=== PATIENT | female | born 1975 | race African-American/Black ===

== ENCOUNTER 2018-04-22 20:55 | Emergency (ER) | payer OTHER ==
[2018-04-22] MEDS ORDERED: LIDOCAINE 1% INJ-PF (10 MG/ML) 30 ML SDV INJ ONE (22:17)
--- NOTE | 2018-04-22 22:32 | ER Document Report ---
ED Oral Problem - General Chief Complaint: Toothache Stated Complaint: TOOTH PAIN Time Seen by Provider: 04/22/18 21:58 Mode of Arrival: Ambulatory Information source: Patient Notes: 42-year-old female presents to ED for complaint of dental pain and swelling to the left lower jaw. Patient states she went to the dentist on Tuesday and was told she had an abscess that needed surgery. She states she was given Augmentin. She states that the swelling has become worse in her left lower jaw. She states the swelling started about 3 days ago. She states she was told she need to call a oral surgeon on Tuesday. TRAVEL OUTSIDE OF THE [place] IN LAST 30 DAYS: No - HPI Patient complains to provider of: Jaw pain, Swelling of face, Swelling of jaw, Toothache Onset: Last week Onset: Gradual Quality of pain: Pressure, Sharp, Stabbing, Throbbing Severity: Moderate Pain Level: 4 Context: Other - Dental abscess swelling to the left lower jaw Swollen jaw/face: Moderate Associated symptoms: Dental decay, Toothache - Dental abscess left lower jaw Worsened by: Nothing Relieved by: Nothing Similar symptoms previously: Yes Recently seen / treated by doctor/dentist: Yes Past Medical History - General Information source: Patient - Social History Smoking Status: Never Smoker Cigarette use (# per day): No Chew tobacco use (# tins/day): No Smoking Education Provided: No Frequency of alcohol use: None Drug Abuse: None Family History: Reviewed & Not Pertinent Patient has suicidal ideation: No Patient has homicidal ideation: No - Past Medical History Cardiac Medical History: Reports: None Pulmonary Medical History: Reports: None EENT Medical History: Reports: None Neurological Medical History: Reports: None Endocrine Medical History: Reports: None Renal/ Medical History: Reports: None Malignancy Medical History: Reports: None GI Medical History: Reports: None Musculoskeletal Medical History: Reports None Skin Medical History: Reports None Psychiatric Medical History: Reports: None Traumatic Medical History: Reports: None Infectious Medical History: Reports: None Surgical Hx: Negative Past Surgical History: Reports: None Review of Systems - Review of Systems Constitutional: No symptoms reported EENT: Mouth swelling, Dental problem Cardiovascular: No symptoms reported Respiratory: No symptoms reported Gastrointestinal: No symptoms reported Genitourinary: No symptoms reported Female Genitourinary: No symptoms reported Musculoskeletal: No symptoms reported Skin: No symptoms reported Hematologic/Lymphatic: No symptoms reported Neurological/Psychological: No symptoms reported -: Yes All other systems reviewed and negative Physical Exam - Vital signs Vitals: Temp Pulse Resp BP Pulse Ox 98.7 F 79 16 139/94 H 100 04/22/18 21:01 04/22/18 21:01 04/22/18 21:01 04/22/18 21:01 04/22/18 21:01 Interpretation: Normal - General General appearance: Appears well, Alert - HEENT Head: Normocephalic, Atraumatic Eyes: Normal Pupils: PERRL Ears: Normal External canal: Normal Tympanic membrane: Normal Sinus: Normal Nasal: Normal Mouth/Lips: Caries Mucous membranes: Normal Teeth diagram: 1 - Dental abscess to the gums large. Area was anesthetized with 1% lidocaine and then an 11 blade used to open the dental abscess. Large amounts of purulent drainage was read moved. Patient gargled with warm salt water until the purulent drainage was removed. Pharynx: Normal, Other - No signs or symptoms of Anam's angina Neck: Normal - Respiratory Respiratory status: No respiratory distress Chest status: Nontender Breath sounds: Normal Chest palpation: Normal - Cardiovascular Rhythm: Regular Heart sounds: Normal auscultation Murmur: No - Abdominal Inspection: Normal Distension: No distension Bowel sounds: Normal Tenderness: Nontender Organomegaly: No organomegaly - Back Back: Normal, Nontender - Extremities General upper extremity: Normal inspection, Nontender, Normal color, Normal ROM , Normal temperature General lower extremity: Normal inspection, Nontender, Normal color, Normal ROM , Normal temperature, Normal weight bearing. No: Hiren's sign - Neurological Neuro grossly intact: Yes Cognition: Normal Orientation: AAOx4 [place] Coma Scale Eye Opening: Spontaneous Sara Coma Scale Verbal: Oriented [place] Coma Scale Motor: Obeys Commands Sara Coma Scale Total: 15 Speech: Normal Motor strength normal: LUE, RUE, LLE, RLE Sensory: Normal - Psychological Associated symptoms: Normal affect, Normal mood - Skin Skin Temperature: Warm Skin Moisture: Dry Skin Color: Normal Course - Re-evaluation Re-evalutation: 04/23/18 01:24 Presentation is most consistent with likely an infected tooth. Airway is patent. Vitals within normal limits. Patient is able swallow without any difficulty. There is no significant facial swelling. No evidence of Anam angina, apical abscess, or airway obstruction. Patient will be started on antibiotics by her dentist. I've instructed to follow-up with dentistry as earliest ability for definitive management. At this time will discharge with return precautions and follow-up recommendations. Verbal discharge instructions given a the bedside and opportunity for questions given. Medication warnings reviewed. Patient is in agreement with this plan and has verbalized understanding of return precautions and the need for primary care follow-up in the next 24-72 hours. - Vital Signs Vital signs: Temp Pulse Resp BP Pulse Ox 98.7 F 80 20 146/92 H 99 04/22/18 22:43 04/22/18 22:43 04/22/18 22:43 04/22/18 22:43 04/22/18 22:43 Discharge - Discharge Clinical Impression: Dental abscess, Pain due to dental caries Condition: Stable Disposition: HOME, SELF-CARE Additional Instructions: TOOTHACHE: Your pain is due to dental decay. The tooth must be repaired in order for you to feel better. You will, therefore, be referred to a dentist. We do not have dentists on the staff at [facility]. Severe swelling or drainage around a tooth usually means a dental abscess. This also requires evaluation and treatment by the dentist, but antibiotics may be prescribed while awaiting dental treatment. You should be rechecked immediately if you develop major swelling of the face, increasing pain, a lump in the jaw or gums, headache, difficulty swallowing, or fever. Continue your antibiotics as prescribed by the dentist. Take them until they are completed. Your abscess has been opened and drained. You need to continue gargling with warm salt water 3-4 times a day until you follow-up with your oral surgeon. Please be sure to call on Tuesday. FOLLOW-UP CARE: You have been referred for follow-up care to the dentists listed below. Call the dentists office for an appointment as you were instructed or within the next two days. If you experience worsening or a significant change in your symptoms, notify the physician immediately or return to the Emergency Department at any time for re-evaluation. [facility] [address] Tuesday mornings, by appointment [facility] [address] [place] [address] [facility] [address] [facility] [address] [facility] [address] [facility] [address] [email or web address] [address] [place] [address] Tuesday- 8:00am to 5:00 pm [facility]. Charges based on income and family size and accepts Medicare, Medicaid, and Insurances Will pull molars [facility] [id number] Hours of Operation 8:00 am - 4:30 pm weekdays The following dental offices accept Medicaid: [facility] [place] [address] Sarah [address] Oliver Dr. Blair Dr. Dean Freddie Blackburn [place], and [place] [facility] Dr. Harp ([place]) Dr. Muller ([place]) [facility] Drs. Alcantara and Josh ([place]) Dr. Merritt ([place]) [facility] Dr. Flores ([place]) Drs. Montesinos and ([place]) Medicaid Care Line Forms: Elevated Blood Pressure Referrals: TATIANA SUH MD [Primary Care Provider] - Follow up as needed
[2018-04-22 22:45] VITALS: BP 146/92
== END 2018-04-22 22:43 | disposition home or self-care (01) ==
LOC: ER 20:55
DX: K04.7 Periapical abscess without sinus (principal); K02.9 Dental caries, unspecified
CPT/HCPCS: 99282; J3490